=== PATIENT | male | born 1975 | race Caucasian/White ===

== ENCOUNTER 2018-12-07 19:24 | Emergency (ER) | payer OTHER ==
[~2018-12-07] VITALS: Ht 167.6 cm; Wt 70.8 kg
[~2018-12-07 19:24] MED LIST: HYDROCODONE; IBUPROFEN 600600 M1 PO; IBUPROFEN 800800 M1 PO; NAPROXEN 500MG500 MG PO; NORCO 5-325 TA1 EACH PO; OXYCONTIN CR 1010 M1 PO; PERCOCET 5-3251 EACH PO; ULTRAM 50MG TAB50 MG PO
[2018-12-07] MEDS ORDERED: KEFLEX500 M1 PO (20:12)
[2018-12-07] MEDS ORDERED: PERCOCET 5-3251 EACH PO (20:32)
[2018-12-07 20:38] VITALS: BP 135/88
== END 2018-12-07 20:40 | disposition home or self-care (01) ==
LOC: M.ERS 19:24
DX: S01.112A Laceration without foreign body of left eyelid and periocular area, initial encounter (principal); S60.212A Contusion of left wrist, initial encounter; F17.210 Nicotine dependence, cigarettes, uncomplicated; Z98.890 Other specified postprocedural states; Z96.22 Myringotomy tube(s) status; Z88.0 Allergy status to penicillin; W22.8XXA Striking against or struck by other objects, initial encounter; Y93.89 Activity, other specified; Y92.89 Other specified places as the place of occurrence of the external cause; Y99.8 Other external cause status